=== PATIENT | male | born 1945 | race African-American/Black ===

== ENCOUNTER 2017-06-08 00:30 | Emergency (ER) | payer MEDICARE, OTHER ==
[~2017-06-08] VITALS: Ht 170.2 cm; Wt 66.2 kg
--- NOTE | 2017-06-08 00:41 | Emergency Room Report ---
History of Present Illness General Chief Complaint: General Complaint Source: Patient, EMS Present Illness HPI This is a 72-year-old male with a history of prostate cancer. He presents with chief complaint of hard time swallowing. This is a chronic problem. He was seen at [facility] where workup was negative. He has an appointment with ENT next week. He woke up with the sensation that he couldn't swallow. No drooling. Better now. No nausea no vomiting. No fever or chills. Denies any other complaint. Allergies: Coded Allergies: No Known Allergies (Unverified , 06/08/17) Patient History Past Medical History: see triage record, old chart reviewed Past Surgical History: other Pertinent Family History: none Social History: Denies: smoking Immunizations: other Reviewed Nursing Documentation: PMH: Agreed, PSxH: Agreed Nursing Documentation-PMH Hx Cancer: Yes - benign prostate cancer Review of Systems Eye: Denies: eye pain, blurred vision ENT: Denies: ear pain, nose congestion, throat swelling Respiratory: Denies: cough, shortness of breath Cardiovascular: Denies: chest pain, palpitations Gastrointestinal: Denies: abdominal pain, diarrhea, nausea, vomiting Musculoskeletal: Denies: back pain, joint pain Skin: Denies: rash Neurological: Denies: headache, numbness Endocrine: Denies: increased thirst, increased urine Hematologic/Lymphatic: Denies: easy bruising All Other Systems: negative except mentioned in HPI Physical Exam Vital Signs Date Time Temp Pulse Resp B/P (MAP) Pulse Ox O2 Delivery O2 Flow Rate FiO2 06/08/17 00:25 98.1 69 18 148/74 96 Room Air vitals normal Sp02 EP Interpretation: reviewed, normal General Appearance: well appearing, no apparent distress, alert Head: normocephalic, atraumatic Eyes: bilateral eye PERRL, bilateral eye EOMI ENT: hearing grossly normal, normal pharynx Neck: full range of motion, supple, no meningismus Respiratory: chest non-tender, lungs clear, normal breath sounds Cardiovascular #1: regular rate, rhythm, no murmur Gastrointestinal: normal bowel sounds, non tender, no mass, no organomegaly, no bruit, non-distended Musculoskeletal: back normal, gait/station normal, normal range of motion Psychiatric: mood/affect normal Skin: warm/dry Medical Decision Making Diagnostic Impression: Primary Impression: Dysphagia Qualified Codes: R13.10 - Dysphagia, unspecified ER Course Patient with dysphasia. This may be secondary to previous CVA. Could be from obstruction. Could be from [place] diverticulum. He is eating drinking without a problem. I see no need for any further workup or diagnostic study. He has an appointment with the ENT a will need scoping. This can be done as an outpatient. Last Vital Signs Date Time Temp Pulse Resp B/P (MAP) Pulse Ox O2 Delivery O2 Flow Rate FiO2 06/08/17 00:25 98.1 69 18 148/74 96 Room Air Status: improved Disposition: HOME, SELF-CARE Condition: Stable Additional Instructions: keep your appointment with ENT . Followup if symptom worsen. PHILIP SUERO M.D. Jun 08, 2017 00:41
[2017-06-08 00:44] VITALS: BP 148/74
== END 2017-06-08 00:44 | disposition home or self-care (01) ==
LOC: EDBD 00:30 → EMR 00:43
DX: R13.10 Dysphagia, unspecified (principal); Z85.46 Personal history of malignant neoplasm of prostate; R47.02 Dysphasia
CPT/HCPCS: 99282